=== PATIENT | female | born 1960 | race Caucasian/White ===

== ENCOUNTER 2025-05-22 18:25 | Emergency (ER) | payer OTHER ==
[~2025-05-22] VITALS: Ht 162.6 cm; Wt 59.0 kg
--- NOTE | 2025-05-22 18:42 | EKG ---
[facility] Test Date: 2025-05-22 Test Time: 18:35:02 Pat Name: DEMOND COMBS Department: EDH Room: Gender: F Econometrician: [id number] : 1960 Requested By: CARRIE WEBER Order Number: [id number] Reading MD: Celso Erickson Measurements Intervals [place] Rate: 71 P: 74 [place]: 182 QRS: 12 QRSD: 91 T: 63 QT: 384 QTc: 418 Interpretive Statements Sinus rhythm Probable left atrial enlargement Anteroseptal infarct, age indeterminate Compared to ECG 10/12/2016 01:42:42 Myocardial infarct finding now present Electronically Signed On 05-23-2025 11:13:14 METAL BONDING PRESS OPERATOR by Celso Erickson Please click the below link to view image of tracing.
--- NOTE | 2025-05-22 18:50 | HMCIMG ---
EXAM: CT Head Without IV contrast. CLINICAL HISTORY: stroke TECHNIQUE: Axial computed tomography images of the head/brain without intravenous contrast. COMPARISON: None provided. FINDINGS: BRAIN: No evidence of acute hemorrhage. Presumed calcifications within the bilateral basal ganglia, more pronounced on the left. No mass lesion. No CT evidence for acute territorial infarct. No midline shift or extra-axial collections. VENTRICLES: No hydrocephalus. ORBITS: The orbits are unremarkable. SINUSES AND MASTOIDS: The paranasal sinuses and mastoid air cells are clear. BONES: No fracture. SOFT TISSUES: Unremarkable. IMPRESSION: No acute intracranial abnormality. /[place]
--- NOTE | 2025-05-22 18:53 | ERN ---
General Chief Complaint: Numbness Stated Complaint: NUMBNESS TO RT ARMLEG, ONE HOUR AGO Time Seen by MD: 18:35 Source: patient History of Present Illness Initial Comments PATIENT IS A 64-YEAR-OLD FEMALE COMING IN COMPLAINING OF RIGHT LOWER EXTREMITY AND RIGHT UPPER EXTREMITY NUMBNESS AND MILD WEAKNESS IN THE LOWER EXTREMITY MORE THAN THE UPPER. PATIENT STATES THAT SHE DOES HAS A HISTORY OF OSTEOARTHRITIS OF THE SPINE IN HIS HAS BEEN SEEN BY [facility] INVESTIGATOR SPECIAL AGENT. SHE HAS PLEATED A COURSE OF PHYSICAL THERAPY AND WAS RECEIVING ANOTHER ONE ON SATURDAY SHE STATES THAT SHORTLY AFTER RECEIVING THE THERAPY SHE STARTED PRESENTING WITH THE SYMPTOMS THAT SHE IS DESCRIBING. PATIENT IS A ALERT AND ORIENTED NEUROLOGICALLY PATIENT IS INTACT. Allergies: Coded Allergies: No Known Allergies (Unverified Allergy, Unknown, 05/22/25) Past Medical History Past Medical History: Depression, Diabetes-Type II, High Cholesterol, Other Medical History Other: PSORIASIS, BACK PAIN Past Surgical History: None ROS Dictation CONSTITUTIONAL: NO CHILLS, NO FEVER, NO WEAKNESS, NO DIAPHORESIS, NO MALAISE. HEAD/FACE: NO SIGNS OF TRAUMA. EENT: NO EYE PAIN, NO BLURRED VISION, NO TEARING, NO DOUBLE VISION, NO EAR PAIN, NO EAR DISCHARGE, NO NOSE PAIN, NO NASAL CONGESTION, NO THROAT PAIN, NO THROAT SWELLING, NO MOUTH PAIN. RESPIRATORY: NO COUGH, NO ORTHOPNEA, NO SOB, NO STRIDOR, NO WHEEZING. CARDIOVASCULAR: NO CHEST PAIN, NO EDEMA, NO PALPITATIONS, NO SYNCOPE. GASTROINTESTINAL/ABDOMINAL: NO ABDOMINAL PAIN, NO CONSTIPATION, NO DIARRHEA, NO NAUSEA, NO VOMITING. GENITOURINARY: NO ABNORMAL DISCHARGE, NO DYSURIA, NO FREQUENT URINATION, NO HEMATURIA. NO COMPLAINTS OF PAIN IN THE GENITALS. MUSCULOSKELETAL: NO BACK PAIN, NO GOUT, NO JOINT PAIN, NO JOINT SWELLING, NO MUSCLE PAIN, NO MUSCLE STIFFNESS, NO NECK PAIN. INTEGUMENTARY: NO CHANGE IN COLOR, NO CHANGE IN HAIR/NAILS, NO DRYNESS, NO LESION, NO LUMPS, NO RASH. NEUROLOGICAL/PSYCH: NO ANXIETY, NOT DEPRESSED, NO EMOTIONAL PROBLEM, NO HEADACHE, NUMBNESS, NO PRE-EXISTING DEFICIT, NO HISTORY OF SEIZURES, NO TREMORS, WEAKNESS. HEMATOLOGIC/LYMPHATIC: NOT ANEMIC, NO HISTORY OF BLOOD CLOTS, NO APPARENT BLEEDING, NO BRUISING, GLANDS NOT SWOLLEN. ALL SYSTEMS NEGATIVE, EXCEPT NOTED. Physical Exam Physical Exam Dictation VITAL SIGNS: REVIEWED. GENERAL APPEARANCE: ALERT, ORIENTED X3, NO ACUTE DISTRESS, OBESE. HEAD AND FACE: NON-TRAUMATIC. EYES: PERRL, PINK CONJUNCTIVAS, EYELID NO TRAUMA, ANTERIOR CHAMBER CLEAR. EARS: PINNAS INTACT AND NO SIGNS OF TRAUMA OR ERYTHEMA. EAR CANALS CLEAR AND NO DISCHARGE. TMS NO ERYTHEMA. NOSE: NO DISCHARGE, NO BLEEDING. OROPHARYNX: MOUTH NORMAL, TEETH NO CARIES, TONGUE PINK. PHARYNX CLEAR, NO ERYTHEMA. TONSILS NO EXUDATES, NO ABSCESSES NOTED. MUCOUS MEMBRANE MOIST. NECK: SUPPLE, NON-TENDER, NO THYROMEGALY, NO MASSES, NO JVD, NO BRUITS. BREAST: DEFERRED. CHEST: NO TENDERNESS, NO CREPITUS, NO PARADOXICAL MOVEMENT, NO RETRACTIONS. LUNGS: CLEAR, WELL-VENTILATED, SYMMETRIC, NO RALES, NO WHEEZING, NO RHONCHI, NO STRIDOR, GOOD BREATH SOUNDS BILATERALLY. HEART: REGULAR RATE, REGULAR RHYTHM, NO MURMUR, NO GALLOPS. VASCULAR: NO PERIPHERAL EDEMA. ABDOMEN: SOFT, POSITIVE BOWEL SOUNDS, NONDISTENDED, NO GUARDING, NONTENDER, NO REBOUND, NO MASSES NO HEPATOMEGALY, NO SPLENOMEGALY, NO MEDRANO'S SIGN, NO HERNIAS. RECTAL: DEFERRED. GENITAL: DEFERRED. NEUROLOGICAL: NORMAL SPEECH, GROSS MOTOR FUNCTION INTACT, GROSS SENSORY FUNCTION INTACT. MUSCULOSKELETAL: NECK NONTENDER, FULL RANGE OF MOTION, BACK NONTENDER, FULL RANGE OF MOTION. EXTREMITIES: NONTENDER, FULL RANGE OF MOTION. SKIN: COLOR PINK, DRY, NO TURGOR, NO RASH, NO LACERATIONS, NO ABRASIONS, NO CONTUSIONS. LYMPHATICS: DEFERRED. Results Laboratory and Microbiology Lab and Micro Result Laboratory Tests Test 05/22/25 18:38 05/22/25 18:50 05/22/25 19:00 Whole Blood Glucose 111 MG/DL (70-110) H White Blood Count 7.5 K/uL (4.8-10.8) Red Blood Count 3.83 MIL/uL (4.00-5.50) L Hemoglobin 12.4 g/dL (12.0-16.0) Hematocrit 36.6 % (36-48) Mean Corpuscular Volume 95.6 fL (79-99) Mean Corpuscular Hemoglobin 32.4 pg (27.0-33.0) Mean Corpuscular Hemoglobin Concent 33.9 g/dL (32.0-36.0) Red Cell Distribution Width 12.2 % (11.0-15.5) Platelet Count 262 K/uL (130-400) Mean Platelet Volume 11.3 fL (7.5-10.5) H Immature Granulocyte % (Auto) 0.3 % (0-1) Neutrophils (%) (Auto) 73.6 % (40.0-77.0) Lymphocytes (%) (Auto) 17.1 % (21.0-51.0) L Monocytes (%) (Auto) 7.3 % (3.0-13.0) Eosinophils (%) (Auto) 1.2 % (0.0-8.0) Basophils (%) (Auto) 0.5 % (0.0-5.0) Neutrophils # (Auto) 5.5 K/uL (1.8-7.7) Lymphocytes # (Auto) 1.3 K/uL (1.0-4.8) Monocytes # (Auto) 0.6 K/uL (0.1-1.0) Eosinophils # (Auto) 0.09 K/uL (0.00-0.70) Basophils # (Auto) 0.04 K/uL (0.00-0.20) Absolute Immature Granulocyte (auto 0.02 K/uL (0-1) Nucleated Red Blood Cells 0.0 % (0.0-0.19) Prothrombin Time 9.8 SEC (9.6-11.6) Prothromb Time International Ratio <= 0.93 (0.85-1.15) Activated Partial Thromboplast Time 27.7 SEC (26.3-35.5) Sodium Level 137 mmol/L (136-145) Potassium Level 3.8 mmol/L (3.5-5.1) Chloride Level 102 mmol/L (101-111) Carbon Dioxide Level 28 mmol/L (21-32) Blood Urea Nitrogen 17 mg/dL (7-18) Creatinine 0.7 mg/dL (0.5-1.0) Glomerular Filtration Rate Calc 97 mL/min (>90) Random Glucose 114 mg/dL (70-105) H Total Calcium 9.2 mg/dL (8.5-10.1) Total Creatine Kinase 91 U/L (21-232) Troponin I High Sensitivity 10 ng/L (4-50) LDL Cholesterol 114 mg/dL (0-99) H Urine Color COLORLESS (YELLOW) Urine Appearance CLEAR (CLEAR) Urine pH 6.5 (5.0-8.0) Urine Specific [place] 1.003 (1.001-1.031) Urine Protein NEGATIVE mg/dL (NEGATIVE) Urine Glucose (UA) NEGATIVE mg/dL (NEGATIVE) Urine Ketones NEGATIVE mg/dL (NEGATIVE) Urine Occult Blood NEGATIVE (NEGATIVE) Urine Nitrate NEGATIVE (NEGATIVE) Urine Bilirubin NEGATIVE mg/dL (NEGATIVE) Urine Urobilinogen 0.2 mg/dL (0.2-1.0) Urine Leukocyte Esterase NEGATIVE [place]/uL Labs Reviewed?: Yes MDM MDM: DIFFERENTIAL DIAGNOSIS: NUMBNESS, WEAKNESS, MUSCLE STRAIN, RATIONALE: TESTS CONSIDERED AND ORDERED SECONDARY TO SHARED DECISION MAKING INCLUDE: PREVIOUS OUTSIDE RECORDS REVIEWED: OLD ER VISITS. RISK OF COMPLICATION AND/OR MORBIDITY OR MORTALITY OF PATIENT MANAGEMENT: NONE MEDICATIONS-PER MEDICATION RECONCILIATION NEED FOR HOSPITALIZATION: PATIENT DOES NOT MEET CRITERIA FOR HOSPITALIZATION. NEED FOR EMERGENCY MAJOR/MINOR SURGERY: NO THERE ARE NO SOCIAL CONCERNS WITH THIS PATIENT. PRESCRIPTION DRUG MANAGEMENT PRESCRIPTIONS WILL INCLUDE SYMPTOMATIC CARE PATIENT'S PRIOR EXTERNAL MEDICAL RECORDS FROM OTHER ER VISITS WERE REVIEWED BY ME INDICATED. PRIOR TESTING AND RESULTS FROM PREVIOUS VISITS WERE REVIEWED. PRIOR TESTS WERE TAKEN INTO ACCOUNT WITH MEDICAL DECISION MAKING AND RESOURCE UTILIZATION, INDEPENDENT HISTORIAN/HISTORIANS WERE USED TO OBTAIN COMPLETE MEDICAL HISTORY. I INDEPENDENTLY INTERPRETED THE TEST THAT WERE PERFORMED, RESULTS WERE REVIEWED BY ME AND CONSIDERED FINDINGS ON RADIOLOGY IF ORDERED. MEDICAL MANAGEMENT AND EXAMINATION INTERPRETATION DISCUSSIONS WERE HAD BY ME WITH OTHER QUALIFIED HEALTHCARE PROFESSIONALS INDICATED FOR THE PATIENT'S CARE. 2046 received a call from tele neurologist. They advised to give aspirin, admit the patient for observation and get an MRI in the morning. We will admit the patient. Had extensive discussion with the patient regarding labs imaging. And medical decision making. She is not amenable to admission at this time. I had discussed risks and benefits of getting the MRI at this time. Still patient seemingly disagrees with the plan and does not want to be admitted. She will sign out AMA. ED Course Orders Procedure Category Date Status Time Cbc With Differential LAB 05/22/25 Complete 18:30 Prothrombin Time With LAB 05/22/25 Complete INR 18:30 Partial LAB 05/22/25 Complete Thromboplastin Time 18:30 Ct Head/Brain W/O CT 05/22/25 Resulted Contrast 18:30 Chest 1vw RAD 05/22/25 Resulted 18:30 12 Lead Ekg Tracing- EKG 05/22/25 Complete Technical 18:30 Creatine Kinase, Total LAB 05/22/25 Complete 18:30 Ldl Direct LAB 05/22/25 Complete 18:30 Troponin I High LAB 05/22/25 Complete Sensitivity 18:30 Urinalysis Profile LAB 05/22/25 Complete 18:30 Bedside Glucose CPOE 05/22/25 Transmitted Fingerstick 18:30 Basic Metabolic Panel LAB 05/22/25 Complete 18:30 [place] Prov. Neuro CONPHYSVC 05/22/25 Transmitted Consult 19:41 Vital Signs Date Time Temp Pulse Resp B/P (MAP) Pulse Ox O2 Delivery O2 Flow Rate FiO2 05/22/25 18:41 97.9 74 16 136/74 98 Room Air* 0 21 05/22/25 18:32 97.9 74 16 136/74 99 Room Air 0 DX & DISP Disposition: AMA Decision to Admit Date: May 22, 2025 Departure Impression: Primary Impression: TIA (transient ischemic attack) Condition: Stable YONAS CAMP MD May 22, 2025 18:53 ARCHANA DIXON MD May 22, 2025 21:01
[2025-05-22 19:01] LABS: IMMATURE GRANULOCYTE ABSOLUTE 0.02 K/uL (0-1); NUCLEATED RED BLOOD CELLS 0.0 % (0.0-0.19); PLATELET COUNT (AUTO) 262 K/uL (130-400); RED BLOOD CELL COUNT(AUTO) 3.83 MIL/uL (4.00-5.50); RED CELL DISTRIBUTION WIDTH 12.2 % (11.0-15.5); WHITE BLOOD COUNT (AUTO) 7.5 K/uL (4.8-10.8)
[2025-05-22 19:08] LABS: APPEARANCE,URINE CLEAR (CLEAR); GLUCOSE, URINE (UA) NEGATIVE (NEGATIVE); LEUKOCYTE ESTERASE ,URINE NEGATIVE Leu/uL (NEGATIVE); NITRATE,URINE NEGATIVE (NEGATIVE); OCCULT BLOOD,URINE NEGATIVE (NEGATIVE)
[2025-05-22 19:09] LABS: ADD UA MICROSCOPIC NO
[2025-05-22 19:12] LABS: CREATININE 0.7 mg/dL (0.5-1.0); GLOMERULAR FILTR. RATE CALC 97.0 mL/min (>90); GLUCOSE,RANDOM 114.0 mg/dL (70-105); SODIUM SERUM 137.0 mmol/L (136-145); UREA NITROGEN, BLOOD 17.0 mg/dL (7-18)
--- NOTE | 2025-05-22 19:14 | HMCIMG ---
EXAM: CR Chest, 1 View. CLINICAL HISTORY: stroke COMPARISON: None provided. FINDINGS: LUNGS: The lungs show no infiltrate or other acute finding. PLEURAL SPACES: No pleural effusion or pneumothorax. MEDIASTINUM: Cardiac size and mediastinal contours within normal limits. BONES: No acute osseous abnormality. IMPRESSION: No acute cardiopulmonary pathology is evident. /[place]
[2025-05-22 19:16] LABS: INR <= 0.93 (0.85-1.15)
[2025-05-22 19:17] LABS: CREATINE KINASE, TOTAL 91.0 U/L (21-232); LDL DIRECT 114.0 mg/dL (0-99)
[2025-05-22 21:37] VITALS: BP 141/70; PULSE 68; RESP 16; TEMP 97.8; O2SAT 98
--- NOTE | 2025-05-22 21:38 | NUR ---
PT HAD LENGHTHY CONVERSATION WITH ED MD AND NURSE ABOUT NOT WANTING TO BE ADMITTED. PT VOICED WANTING TO LEAVE AMA. PT TOLD OF REISKS OF LEAVING AMA AND THAT PT IS WELCOME TO COME BACK TO ED FOR WORSENING SYMPTOMS. PT ADVICED TO FOLLOW UP WITH PCP AND NEUROLOGY
--- NOTE | 2025-05-22 21:38 | NUR ---
Sara burgos in [facility] - 05/22/25 at 2138 by VINCENT PT DARIAN HOFFMAN
[2025-05-23] MEDS ORDERED: PREM625 PO ×2 (21:28)
[2025-05-23] MEDS ORDERED: SIMV5TAB58 PO ×2 (21:28)
[2025-05-23] MEDS ORDERED: ALPR-410 PO ×2 (21:28)
[2025-05-23] MEDS ORDERED: TOFA10TA PO ×2 (21:28)
[2025-05-23] MEDS ORDERED: FLUO20TA29 PO ×2 (21:28)
[2025-05-23] MEDS ORDERED: HYDR25TA PO ×2 (21:28)
== END 2025-05-22 21:41 | disposition left against medical advice (07) ==
LOC: EDH 18:25
DX: G45.9 Transient cerebral ischemic attack, unspecified (principal); E11.9 Type 2 diabetes mellitus without complications; E78.00 Pure hypercholesterolemia, unspecified; M19.90 Unspecified osteoarthritis, unspecified site; F32.A Depression, unspecified; L40.9 Psoriasis, unspecified
CPT/HCPCS: 36415; 70450; 71045; 80048; 81003; 82550; 82948; 83721; 84484; 85025; 85610; 85730; 93005; 99285

== ENCOUNTER 2025-05-23 17:17 | Observation (INO) | payer OTHER ==
[~2025-05-23] VITALS: Ht 162.6 cm; Wt 59.4 kg
[2025-05-23 17:50] LABS: IMMATURE GRANULOCYTE ABSOLUTE 0.03 K/uL (0-1); NUCLEATED RED BLOOD CELLS 0.0 % (0.0-0.19); PLATELET COUNT (AUTO) 294 K/uL (130-400); RED BLOOD CELL COUNT(AUTO) 4.05 MIL/uL (4.00-5.50); RED CELL DISTRIBUTION WIDTH 12.2 % (11.0-15.5); WHITE BLOOD COUNT (AUTO) 7.2 K/uL (4.8-10.8)
[2025-05-23 17:58] LABS: CREATININE 1.0 mg/dL (0.5-1.0); GLOMERULAR FILTR. RATE CALC 63.0 mL/min (>90); GLUCOSE,RANDOM 106.0 mg/dL (70-105); SODIUM SERUM 138.0 mmol/L (136-145); UREA NITROGEN, BLOOD 12.0 mg/dL (7-18)
[2025-05-23 17:59] LABS: INR 0.95 (0.85-1.15)
--- NOTE | 2025-05-23 18:00 | EKG ---
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
[2025-05-23 18:03] LABS: CREATINE KINASE, TOTAL 77.0 U/L (21-232); LDL DIRECT 114.0 mg/dL (0-99)
--- NOTE | 2025-05-23 18:15 | HMCIMG ---
EXAM: CR Chest, 1 View. CLINICAL HISTORY: CP COMPARISON: Radiograph dated May 22, 2025 FINDINGS: LUNGS: There is no mass, infiltrate, or acute pulmonary abnormality. PLEURAL SPACES: No evidence of pleural effusion or pneumothorax. MEDIASTINUM: Cardiac size and mediastinal contours within normal limits. BONES: No acute osseous abnormality. IMPRESSION: No acute cardiopulmonary pathology is evident. /[place]
--- NOTE | 2025-05-23 18:40 | ERN ---
General Chief Complaint: Numbness Stated Complaint: NUMBNESS Time Seen by MD: 17:18 Source: patient History of Present Illness Initial Comments IN HIS IS A 64-YEAR-OLD FEMALE COMING IN COMPLAINING OF RIGHT UPPER AND LOWER EXTREMITY NUMBNESS AND WEAKNESS. PER PATIENT SHE HAS BEEN GETTING PHYSICAL THERAPY IN HIS HE HAS BEEN FURTHER EVALUATION. PATIENT WAS SEEN YESTERDAY BUT STATES HE FELT BETTER AND NOW SHE FEELS BAD AGAIN. Allergies: Coded Allergies: No Known Allergies (Unverified Allergy, Unknown, 05/22/25) Past Medical History Past Medical History: Anxiety, Depression, High Cholesterol Medical History Other: PSORIASIS, BACK PAIN Past Surgical History: Hysterectomy ROS Dictation CONSTITUTIONAL: NO CHILLS, NO FEVER, WEAKNESS, NO DIAPHORESIS, NO MALAISE. HEAD/FACE: NO SIGNS OF TRAUMA. EENT: NO EYE PAIN, NO BLURRED VISION, NO TEARING, NO DOUBLE VISION, NO EAR PAIN, NO EAR DISCHARGE, NO NOSE PAIN, NO NASAL CONGESTION, NO THROAT PAIN, NO THROAT SWELLING, NO MOUTH PAIN. RESPIRATORY: NO COUGH, NO ORTHOPNEA, NO SOB, NO STRIDOR, NO WHEEZING. CARDIOVASCULAR: NO CHEST PAIN, NO EDEMA, NO PALPITATIONS, NO SYNCOPE. GASTROINTESTINAL/ABDOMINAL: NO ABDOMINAL PAIN, NO CONSTIPATION, NO DIARRHEA, NO NAUSEA, NO VOMITING. GENITOURINARY: NO ABNORMAL DISCHARGE, NO DYSURIA, NO FREQUENT URINATION, NO HEMATURIA. NO COMPLAINTS OF PAIN IN THE GENITALS. MUSCULOSKELETAL: NO BACK PAIN, NO GOUT, NO JOINT PAIN, NO JOINT SWELLING, NO MUSCLE PAIN, NO MUSCLE STIFFNESS, NO NECK PAIN. INTEGUMENTARY: NO CHANGE IN COLOR, NO CHANGE IN HAIR/NAILS, NO DRYNESS, NO LESION, NO LUMPS, NO RASH. NEUROLOGICAL/PSYCH: NO ANXIETY, NOT DEPRESSED, NO EMOTIONAL PROBLEM, NO HEADACHE, NO NUMBNESS, NO PRE-EXISTING DEFICIT, NO HISTORY OF SEIZURES, NO TREMORS, NO WEAKNESS. HEMATOLOGIC/LYMPHATIC: NOT ANEMIC, NO HISTORY OF BLOOD CLOTS, NO APPARENT BLEEDING, NO BRUISING, GLANDS NOT SWOLLEN. ALL SYSTEMS NEGATIVE, EXCEPT NOTED. Physical Exam Physical Exam Dictation VITAL SIGNS: REVIEWED. GENERAL APPEARANCE: ALERT, ORIENTED X3, NO ACUTE DISTRESS, OBESE. HEAD AND FACE: NON-TRAUMATIC. EYES: PERRL, PINK CONJUNCTIVAS, EYELID NO TRAUMA, ANTERIOR CHAMBER CLEAR. EARS: PINNAS INTACT AND NO SIGNS OF TRAUMA OR ERYTHEMA. EAR CANALS CLEAR AND NO DISCHARGE. TMS NO ERYTHEMA. NOSE: NO DISCHARGE, NO BLEEDING. OROPHARYNX: MOUTH NORMAL, TEETH NO CARIES, TONGUE PINK. PHARYNX CLEAR, NO ERYTHEMA. TONSILS NO EXUDATES, NO ABSCESSES NOTED. MUCOUS MEMBRANE MOIST. NECK: SUPPLE, NON-TENDER, NO THYROMEGALY, NO MASSES, NO JVD, NO BRUITS. BREAST: DEFERRED. CHEST: NO TENDERNESS, NO CREPITUS, NO PARADOXICAL MOVEMENT, NO RETRACTIONS. LUNGS: CLEAR, WELL-VENTILATED, SYMMETRIC, NO RALES, NO WHEEZING, NO RHONCHI, NO STRIDOR, GOOD BREATH SOUNDS BILATERALLY. HEART: REGULAR RATE, REGULAR RHYTHM, NO MURMUR, NO GALLOPS. VASCULAR: NO PERIPHERAL EDEMA. ABDOMEN: SOFT, POSITIVE BOWEL SOUNDS, NONDISTENDED, NO GUARDING, NONTENDER, NO REBOUND, NO MASSES NO HEPATOMEGALY, NO SPLENOMEGALY, NO MEDRANO'S SIGN, NO HERNIAS. RECTAL: DEFERRED. GENITAL: DEFERRED. NEUROLOGICAL: NORMAL SPEECH, GROSS MOTOR FUNCTION INTACT, GROSS SENSORY FUNCTION INTACT. MUSCULOSKELETAL: NECK NONTENDER, FULL RANGE OF MOTION, BACK NONTENDER, FULL RANGE OF MOTION. EXTREMITIES: NONTENDER, FULL RANGE OF MOTION. SKIN: COLOR PINK, DRY, NO TURGOR, NO RASH, NO LACERATIONS, NO ABRASIONS, NO CONTUSIONS. LYMPHATICS: DEFERRED. Results Laboratory and Microbiology Lab and Micro Result Laboratory Tests Test 05/23/25 17:37 White Blood Count 7.2 K/uL (4.8-10.8) Red Blood Count 4.05 MIL/uL (4.00-5.50) Hemoglobin 13.0 g/dL (12.0-16.0) Hematocrit 38.8 % (36-48) Mean Corpuscular Volume 95.8 fL (79-99) Mean Corpuscular Hemoglobin 32.1 pg (27.0-33.0) Mean Corpuscular Hemoglobin Concent 33.5 g/dL (32.0-36.0) Red Cell Distribution Width 12.2 % (11.0-15.5) Platelet Count 294 K/uL (130-400) Mean Platelet Volume 11.1 fL (7.5-10.5) H Immature Granulocyte % (Auto) 0.4 % (0-1) Neutrophils (%) (Auto) 74.1 % (40.0-77.0) Lymphocytes (%) (Auto) 17.1 % (21.0-51.0) L Monocytes (%) (Auto) 7.5 % (3.0-13.0) Eosinophils (%) (Auto) 0.3 % (0.0-8.0) Basophils (%) (Auto) 0.6 % (0.0-5.0) Neutrophils # (Auto) 5.4 K/uL (1.8-7.7) Lymphocytes # (Auto) 1.2 K/uL (1.0-4.8) Monocytes # (Auto) 0.5 K/uL (0.1-1.0) Eosinophils # (Auto) 0.02 K/uL (0.00-0.70) Basophils # (Auto) 0.04 K/uL (0.00-0.20) Absolute Immature Granulocyte (auto 0.03 K/uL (0-1) Nucleated Red Blood Cells 0.0 % (0.0-0.19) Prothrombin Time 10.1 SEC (9.6-11.6) Prothromb Time International Ratio 0.95 (0.85-1.15) Activated Partial Thromboplast Time 26.9 SEC (26.3-35.5) Sodium Level 138 mmol/L (136-145) Potassium Level 4.0 mmol/L (3.5-5.1) Chloride Level 99 mmol/L (101-111) L Carbon Dioxide Level 29 mmol/L (21-32) Blood Urea Nitrogen 12 mg/dL (7-18) Creatinine 1.0 mg/dL (0.5-1.0) Glomerular Filtration Rate Calc 63 mL/min (>90) Random Glucose 106 mg/dL (70-105) H Total Calcium 9.5 mg/dL (8.5-10.1) Magnesium Level 1.70 mg/dL (1.80-2.40) L Total Creatine Kinase 77 U/L (21-232) Troponin I High Sensitivity 10 ng/L (4-50) Triglycerides Level 76 mg/dL (30-200) Cholesterol Level 245 mg/dL (<200) H LDL Cholesterol 114 mg/dL (0-99) H HDL Cholesterol 107 mg/dL (35-85) H Labs Reviewed?: Yes EKG/XRAY/US/CT/MRI EKG Comment 05/23/2025 TIME 5:52 P.M. VENTRICULAR RATE [address] SIN[address]M [place] [address] WAVE ELEVATION OR DEPRESSION MDM MDM: DIFFERENTIAL DIAGNOSIS: RIGHT ARM RIGHT LEG NUMBNESS, RATIONALE: TESTS CONSIDERED AND ORDERED SECONDARY TO SHARED DECISION MAKING INCLUDE: PREVIOUS OUTSIDE RECORDS REVIEWED: OLD ER VISITS. RISK OF COMPLICATION AND/OR MORBIDITY OR MORTALITY OF PATIENT MANAGEMENT: NONE MEDICATIONS-PER MEDICATION RECONCILIATION NEED FOR HOSPITALIZATION: PATIENT DOES NOT MEET CRITERIA FOR HOSPITALIZATION. NEED FOR EMERGENCY MAJOR/MINOR SURGERY: NO THERE ARE NO SOCIAL CONCERNS WITH THIS PATIENT. PRESCRIPTION DRUG MANAGEMENT PRESCRIPTIONS WILL INCLUDE SYMPTOMATIC CARE PATIENT'S PRIOR EXTERNAL MEDICAL RECORDS FROM OTHER ER VISITS WERE REVIEWED BY Brielle Wesley INDICATED. PRIOR TESTING AND RESULTS FROM PREVIOUS VISITS WERE REVIEWED. PRIOR TESTS WERE TAKEN INTO ACCOUNT WITH MEDICAL DECISION MAKING AND RESOURCE UTILIZATION, INDEPENDENT HISTORIAN/HISTORIANS WERE USED TO OBTAIN COMPLETE MEDICAL HISTORY. I INDEPENDENTLY INTERPRETED THE TEST THAT WERE PERFORMED, RESULTS WERE REVIEWED BY ME AND CONSIDERED FINDINGS ON RADIOLOGY IF ORDERED. MEDICAL MANAGEMENT AND EXAMINATION INTERPRETATION DISCUSSIONS WERE HAD BY ME WITH OTHER QUALIFIED HEALTHCARE PROFESSIONALS INDICATED FOR THE PATIENT'S CARE. ED Course Orders Procedure Category Date Status Time Cbc With Differential LAB 05/23/25 Complete 17:20 Prothrombin Time With LAB 05/23/25 Complete INR 17:20 Lipid Panel LAB 05/23/25 Complete 17:20 Chest 1vw RAD 05/23/25 Resulted 17:20 12 Lead Ekg Tracing- EKG 05/23/25 Complete Technical 17:20 Magnesium LAB 05/23/25 Complete 17:20 Creatine Kinase, Total LAB 05/23/25 Complete 17:20 Troponin I High LAB 05/23/25 Complete Sensitivity 17:20 Urinalysis Profile LAB 05/23/25 Logged 17:20 Partial LAB 05/23/25 Complete Thromboplastin Time 17:20 Basic Metabolic Panel LAB 05/23/25 Complete 17:20 Magnesium 2gm Premix PHA 05/23/25 In Process 50ml (Magnesium 2gm 19:00 Current Medications Medications (Trade) Dose Ordered Sig/Angelia Route PRN Reason Start Time Stop Time Status Last Admin Dose Admin Magnesium Sulfate 50 ml @ 0 mls/hr PROTOCOL IV 05/23/25 19:00 06/22/25 18:59 Vital Signs Date Time Temp Pulse Resp B/P (MAP) Pulse Ox O2 Delivery O2 Flow Rate FiO2 05/23/25 17:19 97.9 90 20 149/90 99 Room Air DX & DISP Disposition: Inpatient Departure Impression: Primary Impression: Weakness Additional Impression: Pre-syncope Condition: Stable Referrals: JOHN SUAREZ MD (PCP) YONAS CAMP MD May 23, 2025 18:40 PARIS MOSER MD May 23, 2025 19:11
[2025-05-23] MEDS: MAGNESIUM 2GM PREMIX 50ML 50 ML IV SCH (19:27)
--- NOTE | 2025-05-23 19:56 | HP ---
[facility] HISTORY & PHYSICAL Date Patient Seen: May 23, 2025 Time of Visit: 19:55 Supervising Physician:Dr Sriram Aceves Primary Care Physician: Dr. Pulido Outpatient Specialists: [ ] Inpatient Consults: [ ] PROBLEM LIST: Chronic back pain, was diagnosed with lumbar degeneration as outpatient, underwent physical therapy for four weeks with no significant improvement Right lower extremity numbness, POA Hypertension, POA DM type 2 with hyperglycemia, POA Hyperlipidemia, POA Anxiety, POA History of psoriasis PLAN: Admit to medical-surgical floor with telemetry VS per unit protocol Heart healthy diet Keep SBP less than 160 Start Xanax 0.25 mg t.i.d. as needed for anxiety Keep serum glucose less than 150 ISS and fingerstick per unit protocol Complete bedrest for now Keep head of bed above 30 CBC, CMP, magnesium level daily HPI: 64-year-old female with past medical history of psoriasis, hypertension, DM type 2, hyperlipidemia, was recently diagnosed with lumbar degeneration and underwent four weeks of physical therapy with no significant improvement. Apparently patient presented yesterday with right lower extremity numbness, CT head at that time was negative, she was supposed to be admitted however she went home against medical advice. She then presented today with similar complaint of unable to feel the floor whenever she walks, denies any sharp pain in her lower back during ambulation. Initial CBC showed no acute anemia or infection, her chemistry unrevealing for any acute electrolyte or kidney dysfunction. At present patient is currently hemodynamically stable, very anxious, on room air with appropriate oxygen saturation, GCS 15, denies any chest pain, shortness of breath, abdominal pain, fever, flu-like symptoms, dysuria, diarrhea, or nausea or vomiting. Patient denies any smoking, alcohol intake, or illicit drug use. PAST MEDICAL HX: see above PAST SURGICAL HX: noncontributory SOCIAL HISTORY: No tobacco, ETOH, or illicit drug use Coded Allergies: No Known Allergies (Unverified Allergy, Unknown, 05/22/25) REVIEW OF SYSTEMS: 12 point ROS reviewed with patient. Pertinent positives mentioned above. Otherwise negative. PHYSICAL EXAM: GENERAL: alert, weak, awake oriented x 3 HEENT: EOMI, Sclera non icteric, moist mucosa NECK: Supple, no JVD, trachea midline LUNGS: Clear breath sounds bilaterally. No wheezes HEART: Regular rate and rhythm. Normal S1 and S2, without murmurs ABD: Abdomen soft, nontender. Bowel sounds present EXT: No clubbing cyanosis or edema NEURO: Alert and oriented to person, follows commands Vital Signs (last 8hr) Date Time Temp Pulse Resp B/P (MAP) Pulse Ox O2 Delivery O2 Flow Rate FiO2 05/23/25 19:36 97.9 67 16 135/77 100 Room Air* 0 21 05/23/25 17:19 97.9 90 20 149/90 99 Room Air LABS: Hematology Labs: Test 05/23/25 17:37 Range/Units White Blood Count 7.2 4.8-10.8 K/uL Red Blood Count 4.05 4.00-5.50 MIL/uL Hemoglobin 13.0 12.0-16.0 g/dL Hematocrit 38.8 36-48 % Mean Corpuscular Volume 95.8 79-99 fL Mean Corpuscular Hemoglobin 32.1 27.0-33.0 pg Mean Corpuscular Hemoglobin Concent 33.5 32.0-36.0 g/dL Red Cell Distribution Width 12.2 11.0-15.5 % Platelet Count 294 130-400 K/uL Mean Platelet Volume 11.1 H 7.5-10.5 fL Immature Granulocyte % (Auto) 0.4 0-1 % Neutrophils (%) (Auto) 74.1 40.0-77.0 % Lymphocytes (%) (Auto) 17.1 L 21.0-51.0 % Monocytes (%) (Auto) 7.5 3.0-13.0 % Eosinophils (%) (Auto) 0.3 0.0-8.0 % Basophils (%) (Auto) 0.6 0.0-5.0 % Neutrophils # (Auto) 5.4 1.8-7.7 K/uL Lymphocytes # (Auto) 1.2 1.0-4.8 K/uL Monocytes # (Auto) 0.5 0.1-1.0 K/uL Eosinophils # (Auto) 0.02 0.00-0.70 K/uL Basophils # (Auto) 0.04 0.00-0.20 K/uL Absolute Immature Granulocyte (auto 0.03 0-1 K/uL Nucleated Red Blood Cells 0.0 0.0-0.19 % Chemistry Labs: Test 05/23/25 17:37 Range/Units Sodium Level 138 136-145 mmol/L Potassium Level 4.0 3.5-5.1 mmol/L Chloride Level 99 L 101-111 mmol/L Carbon Dioxide Level 29 21-32 mmol/L Blood Urea Nitrogen 12 7-18 mg/dL Creatinine 1.0 0.5-1.0 mg/dL Glomerular Filtration Rate Calc 63 >90 mL/min Random Glucose 106 H 70-105 mg/dL Total Calcium 9.5 8.5-10.1 mg/dL Magnesium Level 1.70 L 1.80-2.40 mg/dL Total Creatine Kinase 77 21-232 U/L Troponin I High Sensitivity 10 4-50 ng/L Triglycerides Level 76 30-200 mg/dL Cholesterol Level 245 H <200 mg/dL LDL Cholesterol 114 H 0-99 mg/dL HDL Cholesterol 107 H 35-85 mg/dL Coagulation Labs: Test 05/23/25 17:37 Range/Units Prothrombin Time 10.1 9.6-11.6 SEC Prothromb Time International Ratio 0.95 0.85-1.15 Activated Partial Thromboplast Time 26.9 26.3-35.5 SEC DIAGNOSTICS / RADIOLOGY RESULTS: EXAM: CR Chest, 1 View. CLINICAL HISTORY: CP COMPARISON: Radiograph dated May 22, 2025 FINDINGS: LUNGS: There is no mass, infiltrate, or acute pulmonary abnormality. PLEURAL SPACES: No evidence of pleural effusion or pneumothorax. MEDIASTINUM: Cardiac size and mediastinal contours within normal limits. BONES: No acute osseous abnormality. IMPRESSION: No acute cardiopulmonary pathology is evident. PLAN NEURO: Minimize central acting medications as possible. Maintain fall precautions, adequate lighting during the day PULMONARY: Supplemental 02 as needed. Maintain aspiration precautions at all times CARDIOVASCULAR: Follow hemodynamics. Vital signs per facility protocol GI & NUTRITION: Continue with nutritional support. Continue stool softeners and laxatives as needed. KIDNEYS & ELECTROLYTES: Strict monitoring of intake, output and overall fluid balance. Avoid nephrotoxic medications to the extent possible. Medications to be dosed according to renal function. Monitor electrolytes and replace as needed ENDOCRINE: Maintain blood glucose between 100-180 at all times. Hypoglycemia protocol in place INFECTIOUS DISEASE: Trend temperature, WBC and procalcitonin level Follow cultures, deescalate antibiotics as soon as possible. Panculture if new onset fever ONCOLOGY/HEMATOLOGY/COAGULATION: Monitor for s/s of bleeding Monitor hemoglobin, coagulation studies as needed SKIN: Pressure ulcer prevention per facility protocol Specialty mattress ORTHO/REHAB: Continue PT/OT Prophylaxis: Continue GI and DVT prophylaxis Code Status: Full Resuscitation Disposition: TBD Supervising physician: [facility] May 23, 2025 19:56
[2025-05-23] MEDS ORDERED: PoTASSium chloRIDE 20MEQ ER 20 MEQ ERTAB PO PRN (20:00)
[2025-05-23] MEDS ORDERED: MAGNESIUM 2GM PREMIX 50ML 50 ML IV PRN (20:00)
[2025-05-23] MEDS ORDERED: PoTASSium chl 10% ELIXIR 20MEQ 20 MEQ/15 ML UDCUP PO PRN (20:00)
[2025-05-23] MEDS ORDERED: HYDROcodone/APAP 5/325 1 TAB TABLET PO PRN (20:00)
[2025-05-23] MEDS: LACTATED RINGERS 1000ML 1,000 ML IV SCH (20:20)
[2025-05-23 20:26] LABS: APPEARANCE,URINE CLEAR (CLEAR); GLUCOSE, URINE (UA) NEGATIVE (NEGATIVE); LEUKOCYTE ESTERASE ,URINE NEGATIVE Leu/uL (NEGATIVE); NITRATE,URINE NEGATIVE (NEGATIVE); OCCULT BLOOD,URINE NEGATIVE (NEGATIVE)
[2025-05-23 20:28] LABS: ADD UA MICROSCOPIC YES
[2025-05-23 20:30] LABS: SQUAMOUS EPITHELIAL CELL,UR RARE /HPF (0-2)
[2025-05-23] MEDS ORDERED: FLUO20TA29 PO ×2 (21:28)
[2025-05-23] MEDS ORDERED: ALPR-410 PO ×2 (21:28)
[2025-05-23] MEDS ORDERED: PREM625 PO ×2 (21:28)
[2025-05-23] MEDS ORDERED: SIMV5TAB58 PO ×2 (21:28)
[2025-05-23] MEDS ORDERED: TOFA10TA PO ×2 (21:28)
[2025-05-23] MEDS ORDERED: HYDR25TA PO ×2 (21:28)
--- NOTE | 2025-05-23 22:28 | NUR ---
report given to gaurav rn
[2025-05-23 23:15] VITALS: BP 119/76; PULSE 64; PULSE 78; RESP 16; TEMP 97.8
[2025-05-23 23:17] VITALS: BP 122/81; PULSE 61; RESP 16
[2025-05-23] MEDS: HYDROcodone/APAP 5/325 1 TAB TABLET PO PRN (23:21)
[2025-05-23 23:23] VITALS: BP 123/89; PULSE 77; RESP 16
[2025-05-24 03:31] VITALS: BP 95/58; PULSE 52; RESP 16; TEMP 97.4
[2025-05-24 03:41] LABS: IMMATURE GRANULOCYTE ABSOLUTE 0.02 K/uL (0-1); NUCLEATED RED BLOOD CELLS 0.0 % (0.0-0.19); PLATELET COUNT (AUTO) 249 K/uL (130-400); RED BLOOD CELL COUNT(AUTO) 3.51 MIL/uL (4.00-5.50); RED CELL DISTRIBUTION WIDTH 12.2 % (11.0-15.5); WHITE BLOOD COUNT (AUTO) 5.7 K/uL (4.8-10.8)
[2025-05-24 04:01] LABS: CREATININE 0.7 mg/dL (0.5-1.0); GLOMERULAR FILTR. RATE CALC 97.0 mL/min (>90); GLUCOSE,RANDOM 92.0 mg/dL (70-105); PHOSPHORUS 4.0 mg/dL (2.5-4.9); SODIUM SERUM 138.0 mmol/L (136-145); UREA NITROGEN, BLOOD 11.0 mg/dL (7-18)
[2025-05-24 04:14] VITALS: O2SAT 98
[2025-05-24 07:54] VITALS: BP 111/68; PULSE 61; RESP 19; TEMP 97.9
[2025-05-24 08:00] VITALS: O2SAT 97
[2025-05-24] MEDS: PoTASSium chloRIDE 20MEQ ER 20 MEQ ERTAB PO ONE (10:48)
--- NOTE | 2025-05-24 11:55 | DS ---
[facility] DISCHARGE SUMMARY Date Patient Seen: May 24, 2025 Time of Visit: 11:52 Supervising Physician: Dr Aceves Primary Care Physician: Dr. Pulido Outpatient Specialists: [ ] Inpatient Consults: [ ] PROBLEM LIST: Degenerative disc disease Chronic lumbar back pain with radiculopathy Hypertension, POA DM type 2 with hyperglycemia, POA Hyperlipidemia, POA Anxiety, POA History of psoriasis HOSPITAL COURSE: HPI 64-year-old female with past medical history of psoriasis, hypertension, DM type 2, hyperlipidemia, was recently diagnosed with lumbar degeneration and underwent four weeks of physical therapy with no significant improvement. Apparently patient presented yesterday with right lower extremity numbness, CT head at that time was negative, she was supposed to be admitted however she went home against medical advice. She then presented today with similar complaint of unable to feel the floor whenever she walks, denies any sharp pain in her lower back during ambulation. 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 PCP notified of patients admission, hospital course and discharge. PHYSICAL EXAM: GENERAL: alert, weak, awake oriented x 3 HEENT: EOMI, Sclera non icteric, moist mucosa NECK: Supple, no JVD, trachea midline LUNGS: Clear breath sounds bilaterally. No wheezes HEART: Regular rate and rhythm. Normal S1 and S2, without murmurs ABD: Abdomen soft, nontender. Bowel sounds present EXT: No clubbing cyanosis or edema NEURO: Alert and oriented to person, follows commands FOLLOW-UP: Patient has a follow up appointment tomorrow with digital sales executive Outpatient evaluation by Neurosurgery RECOMMENDATIONS: See Discharge Instructions Return precautions discussed This case was seen and discussed with my supervising physician. More than 30 minutes spent on discharge process, including evaluation of the patient, discussion with nursing staff, medication reconciliation and follow-up appointments MAURILIO MANNING May 24, 2025 11:55
[2025-05-24] MEDS ORDERED: KETO10 PO ×2 (12:01)
[2025-05-24 12:10] VITALS: BP 114/72; PULSE 73; RESP 20; TEMP 98.1
--- NOTE | 2025-05-24 13:09 | NUR ---
Patient alert and oriented x4 being discharged home. Patient being discharged via lift. Prescription given, electronic prescription sent - medications explained including side effects. Patient educated to follow with PCP and get referral to see Dr. Johnson. Dr. Johnson made aware of the consult and that pt will follow up as outpatient. IV removed without complications. All questions answered, patient verbalized complete understanding. Patient gathered all belongings and took with her at [place].
--- NOTE | 2025-05-24 13:16 | HMCIMG ---
EXAM: MR Lumbar Spine Without Intravenous Contrast. CLINICAL HISTORY: severe lumbar radiculopathy TECHNIQUE: Magnetic resonance images of the lumbar spine without intravenous contrast in multiple planes. CONTRAST: None. COMPARISON: None provided. FINDINGS: VERTEBRAE: No acute fracture or focal osseous lesion. ALIGNMENT: Straightening of the lumbar spine. SPINAL CORD AND CAUDA EQUINA: No abnormal signal or mass. FINDINGS BY LEVEL: L1-L2: No central canal or foraminal stenosis. L2-L3: Diffuse posterior disc bulge causing mild spinal canal compromise and thecal sac compression and abutting bilateral traversing nerve roots. Mild facetal arthropathy. Type I modic change. L3-L4: Diffuse posterior and bilateral paracentral disc bulge (left greater than right) causing mild spinal canal compromise and thecal sac compression and abutting bilateral traversing nerve roots (left greater than right). Mild facetal arthropathy. L4-L5: Diffuse posterior and bilateral paracentral disc bulge (left greater than right) causing mild spinal canal compromise and thecal sac compression. It is impinging on the left traversing nerve root and abutting the left exiting nerve root. Mild facetal arthropathy. L5-S1: Central disc bulge causing mild spinal canal compromise and thecal sac compression without significant nerve root compression. PARASPINAL SOFT TISSUES: Unremarkable. IMPRESSION: 1. No acute findings. 2. Multilevel degenerative disc disease, most pronounced at L3-L4 and L4-L5 levels, with left-sided disc bulges impinging on the left traversing nerve root at L4-L5. /[place]arson
== END 2025-05-24 13:14 | disposition home or self-care (01) ==
LOC: EDH 17:17 → INTOOBSV 19:49 → EDHIP 19:49 → 2DH 22:40
PROVIDERS: ADMIT Internal Medicine Critical Care Medicine; ATTEND Internal Medicine Critical Care Medicine
DX: M51.360 Other intervertebral disc degeneration, lumbar region with discogenic back pain only (principal); G89.29 Other chronic pain; E11.65 Type 2 diabetes mellitus with hyperglycemia; E78.5 Hyperlipidemia, unspecified; F41.9 Anxiety disorder, unspecified; I10 Essential (primary) hypertension; F32.A Depression, unspecified; R53.1 Weakness; R55 Syncope and collapse; M47.26 Other spondylosis with radiculopathy, lumbar region; E78.00 Pure hypercholesterolemia, unspecified; Z90.710 Acquired absence of both cervix and uterus
CPT/HCPCS: 99285; 96365; 96361 ×2; 96366; 71045; 80061; 82550; 83735 ×2; 84484; 80048 ×2; 85025 ×2; 85610; 85730; 82948 ×3; 81001; 36415 ×2; 93005; 72148; 96375; 84100; J3475; J7120; J1885; G0378; J2060